=== PATIENT | male | born 1990 | race Caucasian/White ===

== ENCOUNTER 2023-07-26 10:18 | Day surgery (SDC) | payer OTHER ==
[2023-07-26] VITALS (7 sets, daily range): BP systolic 123–132; BP diastolic 74–85; PULSE 70–76; TEMP 97.3–98.7
[~2023-07-26] VITALS: Ht 182.9 cm; Wt 153.7 kg
[~2023-07-26 10:18] MED LIST: AMOXICILLIN 8751 TAB PO; CIPRO 500MG TA500 MG PO; COZAAR 50MG50 MG/TAB PO; CYMBALTA 60MG60 MG PO; FLAGYL500 MG PO; INDERAL 10MG10 MG PO; LYRICA 50MG CAP50 MG PO; MOTRIN 600600 MG/TAB PO; REMERON 15M15 MG/TA1 PO; VITAMIN D31000 I1 PO
[2023-07-26] MEDS ORDERED: INDERAL 10MG10 MG PO (11:46)
[2023-07-26] MEDS ORDERED: NORCO 325 MG-51 TAB PO (12:12)
[2023-07-26] MEDS ORDERED: MOTRIN 600600 MG/TAB PO (12:12)
--- NOTE | 2023-07-26 17:53 | NUR ---
[id number]: PT TO RECOVERY BAY 3 FROM PACU S/P LAP APPY A&O, PLACED ON MONITOR, VSS ON RA RECEIVED REPORT AND ASSUMED CARE OF PT FROM RN RUTHANN SPOUSE AT BEDSIDE PROVIDED FOOD/FLUIDS, TOLERATING WELL TORB FROM TAURUS Pedersen FOR 650MG PO APAP - GIVEN FOR MODERATE SRIGHT SHOULDER PAIN - ED ON GAS PAIN AND MGMT PROVIDED AND VOICED UNDERSTANDING PT HAS REMAINED A&O, NAD, VSS ON RA, TOLERATING PO, IS WITHOUT SIGNIFICANT COMPLAINT, WITH STEADY GAIT THRU OUT STAY IV D/C'D. D/C INSTRUCTIONS, FOLLOW UP REVIEWED AND HANDED TO PT. ALL QUESTIONS AND CONCERNS ADDRESSED TO PT SATISFACTION. TAKEN TO EXIT VIA W/C WITH ALL BELONGINGS AND PAPERWORK IN HAND, ASSISTED INTO PASSENGER SEAT OF POV. TO DRIVE HOME.
== END 2023-07-26 16:10 | disposition home or self-care (01) ==
LOC: SDCO 10:18
DX: K38.0 Hyperplasia of appendix (principal); I10 Essential (primary) hypertension; Z79.899 Other long term (current) drug therapy; Z87.891 Personal history of nicotine dependence
CPT/HCPCS: J0690; J1100; J1885; J2405; J2704; J2710; J2795; J3010; J7120